=== PATIENT | male | born 1955 | race Caucasian/White ===

== ENCOUNTER 2021-04-17 08:15 | Inpatient (IN) | payer OTHER, SELFPAY ==
[2021-04-17] VITALS (31 sets, daily range): BP systolic 117–171; BP diastolic 66–93; PULSE 68–88; RESP 16–24; TEMP 36.4–37.1; O2SAT 93–99; BMI 33.5
--- NOTE | 2021-04-17 08:24 | PC.NURSE ---
To seed laboratory assistant via stretcher with seed laboratory assistant team.
--- NOTE | 2021-04-17 08:30 | ED.CHESTPAIN ---
HPI - Chest Pain General Chief Complaint: Chest Pain Stated Complaint: STEMI Time Seen by Provider: 04/17/21 08:17 Source: patient Mode of arrival: EMS Limitations: no limitations History of Present Illness HPI narrative: Patient is a six 5-year-old male complaining of chest pain, midsternal, crushing, 10 out of 10, radiating to left arm, coming by diaphoresis, started this morning. STEMI alert called by EMS prior to arrival. Cardiology notified and present here in the emergency room. Patient taken to Wet Mixer as soon as patient arrived. Related Data Allergies Allergy/AdvReac Type Severity Reaction Status Date / Time No Known Allergies Allergy Mild Verified 04/17/21 08:33 Review of Systems Review of Systems: All systems reviewed & are unremarkable except as noted in HPI and below Constitutional: Constitutional: Denies body ache(s), Denies chills, Denies excessive sweating, Denies fatigue, Denies fever(s), Denies headache(s), Denies lethargy, Denies malaise, Denies weakness and Denies weight loss Eyes: Eyes: Denies blurry vision, Denies change in vision and Denies loss of vision ENT: Denies dizziness, Denies ear discharge, Denies headache(s), Denies lip swelling, Denies epistaxis, Denies nasal congestion, Denies neck pain, Denies throat swelling and Denies tongue swelling Cardiovascular: Cardiovascular: Denies rapid heart rate, Denies edema, Denies irregular heart rhythm, Denies lightheadedness, Denies palpitations, Denies dyspnea and Denies dyspnea on exertion Respiratory: Respiratory: Denies chest congestion, Denies cough, Denies hemoptysis, Denies dyspnea and Denies dyspnea on exertion Gastrointestinal: Gastrointestinal: Denies abdominal pain, Denies melena, Denies hematochezia, Denies diarrhea, Denies nausea, Denies vomiting and Denies hematemesis Musculoskeletal: Musculoskeletal: Denies abnormal gait, Denies deformity, Denies joint swelling, Denies limited range of motion, Denies neck pain and Denies numbness Neurologic: Denies Abnormal speech present, Denies abnormal gait, Denies confusion, Denies dizziness, Denies headache(s), Denies focal weakness, Denies loss of vision, Denies numbness, Denies Other visual disturbances, Denies Sensory deficit (Neuro) and Denies weakness Psychiatric: Psychiatric: Denies confusion, Denies depression, Denies auditory hallucinations, Denies homicidal ideation and Denies suicidal ideation Endocrine: Endocrine: Denies cold intolerance, Denies excessive sweating, Denies fatigue, Denies heat intolerance and Denies palpitations Hematologic/Lymphatic: Hematologic/Lymphatic: Denies easy bleeding and Denies easy bruising Allergic/Immunologic: Allergic/Immunologic: Denies lip swelling, Denies throat swelling and Denies tongue swelling PMFSH Comments Past medical history: Unknown Family history: Unknown Social history: Unknown Exam Const: General: cooperative, healthy appearing, comfortable, no acute distress, well developed, alert and awake; No confusion Orientation/consciousness: oriented to person, oriented to place, oriented to time, patient oriented x3 and No confusion Limitations: no limitations HENMT: Head: normal to inspection, normocephalic and atraumatic Ears: hearing grossly normal bilaterally, TM normal on the right and TM normal on the left General nose exam: Normal external nose present, Normal nares present and No nasal discharge present Face and sinus: normal facial exam Mouth: Yes Normal oral and palatal mucosa present, Yes lip normal, Yes tongue normal and Yes oropharynx normal Throat: posterior oropharynx normal, tonsils normal and uvula midline Eyes: General: appearance normal, both eyes and all related structures Pupils: Equal, round and reactive pupils present EOM: EOMs intact bilaterally Neck: Neck: normal visual inspection, full ROM, no lymphadenopathy and no meningeal signs Chest: Chest palpation & inspection: normal inspection of the chest Resp: Effort & Inspectio
[2021-04-17] MEDS: TICAGRELOR 90 MG TABLET 180 MG (08:31)
[2021-04-17 08:43] LABS: INR 1.2; Prothrombin Time 14.7 Seconds (11.1-14.7)
[2021-04-17 08:44] LABS: Partial Thromboplastin Time 24.8 SECONDS (22.3-36.8)
[2021-04-17 08:46] LABS: Alanine Aminotransferase 19 U/L (4-50); Albumin Level 4.3 g/dL (3.5-5.1); Alkaline Phosphatase 86 U/L (38-126); Anion Gap 8 mmol/L (8-16); Aspartate Amino Transferase 26 U/L (17-59); Bilirubin,Total 0.7 mg/dL (0.2-1.3); Blood Urea Nitrogen 16 mg/dL (9-20); Calcium 9.3 mg/dL (8.4-10.2); Carbon Dioxide 19 mmol/L (22-30); Chloride 102 mmol/L (98-107); Estimated CRCL calculation 100 ml/min; Estimated Glomerular Filt Rate > 60; Glucose 243 mg/dL (65-110); Potassium 3.8 mmol/L (3.4-5.0); Sodium 129 mmol/L (137-145)
[2021-04-17 08:51] LABS: Basophils Absolute Auto 0.1 K/mm3 (0.0-0.1); Basophils Percent Auto 0.5 % (0.2-1.2); Eosinophils Absolute Auto 0.1 K/mm3 (0-0.3); Eosinophils Percent Auto 0.9 % (0-4.4); Hematocrit 43.3 % (42.0-52.0); Hemoglobin 14.6 g/dL (14.0-18.0); Immature Granulocyte Absolute 0.07 K/mm3 (0.00-0.031); Immature Granulocyte Percent A 0.7 % (0-0.5); Lymphocytes Absolute Auto 2.91 K/mm3 (0.9-3.2); Lymphocytes Percent Auto 30.7 % (18.3-44.2); Mean Corpuscular HGB Conc 33.7 g/dl (32-36); Mean Corpuscular Hemoglobin 30.1 pg (26-34); Mean Corpuscular Volume 89.3 fl (80-100); Mean Platelet Volume 9.7 fl (7.4-10.4); Monocytes Absolute Auto 0.9 K/mm3 (0.1-0.6); Monocytes Percent Auto 9.3 % (2.6-8.5); Neutrophils Absolute Auto 5.5 K/mm3 (1.3-6.7); Neutrophils Percent Auto 57.9 % (45.5-73.1); Platelet Count Result 362 k/mm3 (150-375); Red Blood Count 4.85 M/mm3 (4.6-6.20); Red Cell Distribution Width 12.1 % (11.5-14.5); White Blood Count 9.5 K/mm3 (4.5-10.0)
[2021-04-17 09:01] LABS: NT Pro B Type Natriuretic Pept 51 pg/mL (5-100); Troponin I 0.053 ng/mL (0.000-0.034)
--- NOTE | 2021-04-17 09:18 | ECG_ITS ---
Measurements Intervals [place] Rate: 69 P: 39 WA: 161 QRS: -19 QRSD: 102 T: 2 QT: 362 QTc: 389 Interpretive Statements SINUS RHYTHM ANTERIOR INFARCT, AGE INDETERMINATE BORDERLINE T WAVE ABNORMALITY- INFERIOR LEADS ATYPICAL ECG Electronically Signed On 04-18-2021 9:52:21 TECHNICAL ACCOUNT EXECUTIVE by Toriot Farnsworth D.O.
--- NOTE | 2021-04-17 09:22 | PM.IMHP ---
H&P: HPI History of Present Illness Date/Time: 04/17/21 09:22 Chief Complaint: chest pain Narrative: this is a 65-year-old man without prior history of cardiac pathology was presents to the emergency by ambulance this morning with acute onset of chest pain that began this morning while he was at home having coffee. ECG appears to show hyperacute T-wave abnormalities across the precordial leads in this setting preparations are being made for emergency catheterization with revascularization. 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 He receives his medical care from a primary care physician in [place]. He has had no previous medical records here at [facility]. He reports that he is being treated for hypertension and non insulin-dependent diabetes. He reports no medical allergies and does not smoke. Review of Systems Review of Systems: ROS unobtainable: Yes unobtainable due to medical condition Meds Home Medications and Allergies Allergies Allergy/AdvReac Type Severity Reaction Status Date / Time No Known Allergies Allergy Mild Verified 04/17/21 08:33 Vital Signs Vital Signs - 24 hr 04/17/21 08:14 04/17/21 08:32 Temperature 36.4 C Pulse Rate 85 84 Respiratory Rate 24 H Blood Pressure 171/72 H Pulse Oximetry 97 Exam Const: General: in distress and uncomfortable Other: Well-developed well-nourished overweight white male appearing his stated age in severe chest pain distress HENMT: Mouth: Yes moist mucous membranes Eyes: Sclera: sclerae normal Pupils: Equal, round and reactive pupils present Neck: Neck: supple and no JVD Other: carotid pulses are intact and without any bruits Resp: Effort & Inspection: normal respiratory effort Auscultation: clear to auscultation bilaterally Cardio: Rate: regular rate Rhythm: regular rhythm Other: PMI is difficult to palpate S1-S2 are normal no murmur S4 is evident GI: GI Palp: Yes Soft to palpation Auscultation: normal bowel sounds Skin: General skin exam: normal color Neuro: Cognition (Neuro): normal cognition Extrem: General: normal to inspection H&P: Results Labs Labs: Short CBC 04/17/21 Range/Units 08:21 WBC 9.5 (4.5-10.0) K/mm3 Hgb 14.6 (14.0-18.0) g/dL Hct 43.3 (42.0-52.0) % Plt Count 362 (150-375) k/mm3 BMP 04/17/21 08:21 Sodium 129 L Potassium 3.8 Chloride 102 Carbon Dioxide 19 L BUN 16 Creatinine 0.80 Glucose 243 H Calcium 9.3 Cardiac Enzymes 04/17/21 Range/Units 08:21 Troponin I 0.053 H* (0.000-0.034) ng/mL Liver Function 04/17/21 Range/Units 08:21 Total Bilirubin 0.7 (0.2-1.3) mg/dL AST 26 (17-59) U/L ALT 19 (4-50) U/L Alkaline Phosphatase 86 (38-126) U/L Albumin 4.3 (3.5-5.1) g/dL Assessment and Plan Additional Plan this is a 65-year-old man with prior history of hypertension and diabetes presented with chest pain ECG compatible with acute anterior wall injury. Preparations are now being made for emergency angiography in hopes of providing revascularization. Britton Lazar MD [facility]
--- NOTE | 2021-04-17 09:25 | WPDCARDPROC ---
Cardiac Cath Procedure Note Date of procedure:: 04/17/21 Performing physician:: Britton Lazar MD Indication:: chest pain, acute anterior wall AK Brief clinical history:: this is a 65-year-old man without prior history of cardiac problems who presents with acute chest pain by ambulance. ECG is compatible with acute anterior wall current of injury. Procedure Procedure performed:: Emergency coronary angiography emergency PCI(JENNIFER) to the mid LAD left ventriculography Sedation/Medication given:: fentanyl 75 mg Versed 2 mg case start time 835 a.m. case end time 9:10 a.m. sedation provided by Olimpia Gordon RN, trained observer Access site:: right femoral artery Estimated blood loss:: 20 cc Procedure note:: patient was brought to the cardiac catheterization lab in the emergency setting described above. The right femoral triangle was prepared draped usual fashion. Anesthesia was provided with 1% lidocaine infiltrated locally. Using the modified Seldinger technique right punctured and a 6 [place]an vascular sheath was placed. After this I used a 5 [place] JR4 guiding catheter to engage and inject the right coronary artery. After this the left coronary artery was engaged and injected using 6 [place] CLS 3.5 guiding catheter. After this emergency PCI of the mid LAD was recommended and carried out as detailed below. Prior to PCI the patient received Brilinta 180 mg p.o.. He had received aspirin in the emergency department. He was systemically anticoagulated with bolus and infusion of Angiomax. Following emergency PCI the guiding system was removed and the guidewires. A 5 [place] angled pigtail catheter was used to measure left-sided hemodynamics and to inject LV g in the are AO projection. After this the case was terminated the sheath was sutured into position patient was taken to the holding area for post mi/PCI recovery. Findings:: Hemodynamics: Central aortic pressure is 44 over 66 left ventricle 144/0 end-diastolic 16 significant gradient on pullback across the aortic valve. Left ventricle: The LV is normal in size. The mid to apical anterior wall and apex are akinetic. The remainder of the LV contracts normally. Global LV ejection fraction is 45-50% by visual estimation the left main coronary artery is short but nicely patent the left anterior descending is a medium caliber artery giving rise to a septal perforating branch and then a diagonal branch of moderate size after this diagonal branch there is a short distance where the LAD is 100% occluded. The angiographic appearance is typical of an abrupt thrombotic occlusion. The circumflex is a moderate caliber artery giving rise to the marginal branch. The large marginal branch has mild stenosis of about 50-60%. The right coronary artery is medium in caliber and dominant to the posterior circulation the right coronary artery has diffuse mild luminal irregularities but no angiographically significant lesions. Intervention: The LAD was wired using a 0.014 airplane pilot chief 150 coronary guidewire. Following this the lesion was pre-dilated using a 3 x 20 mm emerge PTCA balloon. This restored RACHNA 3 flow into the LAD. The target lesion was a short distance after the major diagonal branch took its origin. This lesion was then treated further with a 3 x 18 mm Orsiro drug-eluting stent deployed at 10 atmospheres with an excellent anatomical result following this the LAD was widely patent with no residual stenosis the target lesion excellent RACHNA 3 flow to the apex no disruption dissection or distal embolization. The LAD distal to this is medium in caliber and has mild diffuse luminal irregularities. Conclusion:: 1. Coronary artery disease in this gentleman presenting with acute anterior wall myocardial infarction with 100% acute occlusion of the mid LAD which was treated successfully using the Orsiro drug-eluting stent described above with very good anatomic result resulting in r
[2021-04-17] MEDS: SODIUM CHLORIDE 0.9% IV 1,000 ML 125 ML IV CONT (11:30)
--- NOTE | 2021-04-17 13:14 | SUR.PHASEII ---
END PHASE II RECOVERY. SEE PCS FOR FURTHER DOCUMENTATION. PT. ADMITTED TO TELEVISION ENGINEERING TEACHER 4 IMU OVERFLOW STATUS POST STEMI, C W/ PCI TO LAD W/ DR. SEYMOUR. HEMOSTASIS AFTER SHEATH PULL FROM R. GROIN AT 1214. BEDREST X 6 HOURS. IVF'S RUNNING ORDERED. DENIES CP OR SOB. WILL CONTINUE TO MONITOR.
--- NOTE | 2021-04-17 13:15 | ADMGEN ---
This patient, Earl Rizo, was admitted IMU OVERFLOW IN [facility]. SEE PHASE II IN MJ TRACKER FOR PREVIOUS DOCUMENTATION. S/P LHC W/ PCI POST STEMI W/ DR. SEYMOUR. HEMOSTASIS ACHIEVED TO R. GROIN PUNCTURE SITE AFTER 30 MINUTE PRESSURE HOLD AT 1214 BY LIANG Sterling RRT. BEDREST CONTINUES X 6 HOURS. IVF'S RUNNING AT 125ML/HR ORDERED. DENIES PAIN OR SOB AT THIS TIME. Patient/family oriented to hospital policies and general routines including ID bracelet, bed and alarms, visiting hours, pain management, procedures, bathroom and other care routines, personal items, smoking policy, room service/diet, and visiting hours. Information on how to activate the Rapid Response Team has been discussed. Patient/Family are encouraged to report perceived risks to care and to ask questions if they do not understand what they are told or what they should do. WILL CONTINUE TO MONITOR.
[2021-04-17 14:22] LABS: Cholesterol 152 mg/dL (0-200); HDL Direct 32 mg/dL; Triglycerides 167 mg/dL (<150)
[2021-04-17 14:33] LABS: LDL Cholesterol Direct 92 mg/dL
--- NOTE | 2021-04-17 14:56 | PC.NURSE ---
Patient report recieved from CARLA Molina. All questions answered and care of patient assumed.
[2021-04-17] MEDS: ALPRAZolam (*CRX) 0.25 MG TABLET PO (16:17)
[2021-04-17 17:45] LABS: Troponin I > 80.000 ng/mL (0.000-0.034)
[2021-04-17] MEDS: TICAGRELOR 90 MG TABLET PO (21:56)
[2021-04-17] MEDS: METOPROLOL TARTRATE 25 MG TABLET PO (21:56)
[2021-04-18] VITALS (17 sets, daily range): BP systolic 119–136; BP diastolic 59–83; PULSE 58–71; RESP 13–21; TEMP 36.4–37; O2SAT 96–100
--- NOTE | 2021-04-18 | ECHO_ITS ---
Patient Info Name: Earl Rizo Age: 65 years : 1955 Gender: Male Ht: 70 in Wt: 233 lbs BSA: 2.32 m2 HR: 66 bpm BP: 132 / 77 mmHg Heart Rhythm: Sinus Rhythm Technical Quality: Good Exam Date: 04/18/2021 1:24 PM Exam Location: [facility] Patient Status: Inpatient Admit Date: 04/17/2021 Staff Ordering Physician: Jesus Ballard MD International Account Manager: Melany Johnson RDCS Attending Provider: Britton Lazar MD Referring Physician: Elio LANGLEY; Exam Type: CA echo dop color flow w con Study Info Indications I22.0 - Subsequent ST elevation (STEMI) myocardial infarction of anterior wall - CAD STATUS POST ANTERIOR STEMI Complete two-dimensional, color flow and Doppler transthoracic echocardiogram is performed with contrast to opacify the left ventricle and to improve the deliniation of the left ventricle endocardial borders. Strain analysis performed. Contrast/Agitated Saline Contrast/Ag. Saline: Definity Amount: 2.00 ml Existing IV Access: Yes IV Access Condition: patent with no signs of infiltration Summary 1. There is probably a small sessile thrombus visualized in the left ventricle apex. 2. Left ventricular chamber dimension is normal. 3. Left ventricular systolic function is normal, estimated at 65-70%. 4. There is mildly increased left ventricular wall thickness. 5. The left ventricular diastolic function is grade I diastolic dysfunction. 6. Global longitudinal strain is abnormal at -15 %. 7. The apical septum, and apical cap are hypokinetic. 8. Complete two-dimensional, color flow and Doppler transthoracic echocardiogram is performed with contrast to opacify the left ventricle and to improve the deliniation of the left ventricle endocardial borders. 9. Strain analysis performed. 10. There is mild aortic valve stenosis with a peak velocity of 270.71 cm/s, mean gradient of 15 mmHg, and aortic valve area of 1.75 cm2. 11. There is mild aortic valve regurgitation. 12. There is mild aortic valve calcification. 13. There is mild tricuspid valve regurgitation. Left Ventricle There is probably a small sessile thrombus visualized in the left ventricle apex. Left ventricular chamber dimension is normal. Left ventricular systolic function is normal, estimated at 65-70%. There is mildly increased left ventricular wall thickness. The left ventricular diastolic function is grade I diastolic dysfunction. Global longitudinal strain is abnormal at -15 %. The apical septum, and apical cap are hypokinetic. All other ambrose appear normal. Right Ventricle Right ventricular chamber dimension is normal. Right ventricular systolic function is normal. Left Atria Left atrial chamber dimension is normal. Right Atria Right atrial chamber dimension is normal. Atrial Septum Intact interatrial septum visualized by color flow imaging. Aortic Valve The aortic valve is trileaflet. There is mild aortic valve stenosis with a peak velocity of 270.71 cm/s, mean gradient of 15 mmHg, and aortic valve area of 1.75 cm2. There is mild aortic valve regurgitation. There is mild aortic valve calcification. Pulmonic Valve The pulmonic valve is normal. There is no pulmonic valve stenosis. There is trace pulmonic regurgitation. Mitral Valve The mitral valve has normal leaflets. There is no mitral valve stenosis. There is trace mitral valve regurgitation. Tricuspid Valve The tricuspid valve leaflets are pippa
--- NOTE | 2021-04-18 04:48 | PC.NURSE ---
SPOKE W/ DR. CHIANG. AWARE OF CONSULT FOR MEDICAL MANAGEMENT.
--- NOTE | 2021-04-18 05:11 | ECG_ITS ---
Measurements Intervals [place] Rate: 62 P: 28 PA: 160 QRS: -30 QRSD: 92 T: 1 QT: 361 QTc: 369 Interpretive Statements SINUS RHYTHM INCOMPLETE RIGHT BUNDLE BRANCH BLOCK ANTERIOR INFARCT, PROBABLY RECENT ABNORMAL ECG Electronically Signed On 04-18-2021 7:50:17 SALES LEDGER ADMINISTRATOR by Torito Farnsworth D.O.
--- NOTE | 2021-04-18 09:06 | PM.IMCN ---
Assessment and Plan Assessment and plan (1) ST elevation (STEMI) myocardial infarction: Qualifiers: Involved coronary artery: unspecified coronary artery Qualified Code(s): I21.3 - ST elevation (STEMI) myocardial infarction of unspecified site Code(s): I21.3 - ST elevation (STEMI) myocardial infarction of unspecified site Status: Acute Assessment and Plan: Cardiology, evaluation noted will continue current treatment. (2) Non-insulin dependent diabetes mellitus: Status: Acute Assessment and Plan: Will restart home medication. Accu-Check twice a day. Diet instruction given. (3) Essential hypertension: Code(s): I10 - Essential (primary) hypertension Status: Acute Assessment and Plan: Home medications restarted. Monitor blood pressure closely. Additional Plan Patient is currently stable. Will continue with diabetic and blood pressure medication. Discharge plan as per Cardiology HPI Data of Consult Consult date: 04/18/21 Requesting Physician: Britton Lazar MD Primary Care Provider: PHYSICIAN NOT ON STAFF Consult Narrative Reason for consult: Management of hypertension and diabetes Narrative: Earl Rizo is a 65 year old male was admitted and [facility] for chest pain. Patient was taken to general production laborer immediately upon arrival to ER. Catheterization showed patient has mid LAD 100% occlusion. Patient at successful placement of Orsiro drug eluting stent placement. Patient has history of hypertension and diabetes and was taking lisinopril and metformin at home. Today patient is feeling doing better, no chest pain or shortness of breath. No abdominal pain nausea or vomiting. Mood stable. Review of Systems Review of Systems: All systems reviewed & are unremarkable except as noted in HPI and below (the history and physical examination.) [facility] Social History Social History Smoking packs per day: 0 Smoking cigarettes per day: 0.0 Smoking status: Never smoker Second hand tobacco smoke exposure: No Alcohol intake: never Drinks per week: 0 Substance use: never Substance use type: does not use Living arrangements: with family Spiritual care concerns: No Meds Home Medications and Allergies Home Medications Medication Instructions Recorded Confirmed Type lisinopril 10 mg PO DAILY 04/17/21 04/17/21 History metformin 1,000 mg PO DAILY 04/17/21 04/17/21 History pravastatin 20 mg PO HS 04/17/21 04/17/21 History sildenafil 25 mg PO DAILY PRN 04/17/21 04/17/21 History Allergies Allergy/AdvReac Type Severity Reaction Status Date / Time No Known Allergies Allergy Mild Verified 04/17/21 08:33 Vital Signs Vital Signs - 24 hr 04/17/21 09:30 04/17/21 09:45 04/17/21 10:00 Temperature 37.1 C Pulse Rate 84 78 68 Respiratory Rate 24 H 20 17 Blood Pressure 127/71 126/66 133/69 Pulse Oximetry 97 93 97 04/17/21 10:15 04/17/21 10:30 04/17/21 11:00 Temperature Pulse Rate 73 78 79 Respiratory Rate 18 17 16 Blood Pressure 124/77 124/73 124/75 Pulse Oximetry 97 98 96 04/17/21 11:30 04/17/21 11:45 04/17/21 12:00 Temperature Pulse Rate 77 80 81 Respiratory Rate 18 20 18 Blood Pressure 118/78 131/73 133/69 Pulse Oximetry 96 97 98 04/17/21 12:15 04/17/21 12:30 04/17/21 12:45 Temperature Pulse Rate 80 88 83 Respiratory Rate 16 16 18 Blood Pressure 124/78 146/79 H 137/73 Pulse Oximetry 97 99 96 04/17/21 13:00 04/17/21 13:15 04/17/21 13:45 Temperature Pulse Rate 88 74 73 Respiratory Rate 18 16 16 Blood Pressure 135/74 139/84 133/75 Pulse Oximetry 96 97 97 04/17/21 14:00 04/17/21 14:15 04/17/21 15:15 Temperature Pulse Rate 74 73 76 Respiratory Rate 16 18 Blood Pressure 143/77 H 138/73 Pulse Oximetry 96 96 04/17/21 15:45 04/17/21 16:00 04/17/21 16:45 Temperature 37.1 C Pulse Rate 80 82 75 Respiratory Rate 18 20 18
[2021-04-18] MEDS: TICAGRELOR 90 MG TABLET PO ×2 (09:16→20:53)
[2021-04-18] MEDS: ASPIRIN 81 MG CHEWABLE TABLET PO (09:17)
[2021-04-18] MEDS: lisinopriL 5 MG TABLET PO (09:17)
[2021-04-18] MEDS: METOPROLOL TARTRATE 25 MG TABLET PO ×2 (09:17→20:53)
[2021-04-18] MEDS: ROSUVASTATIN 10 MG TABLET 20 MG PO (09:17)
[2021-04-18 12:08] LABS: Glucose Point of Care 116 mg/dl (65-105)
--- NOTE | 2021-04-18 13:00 | PM.PNCARD ---
Progress Note: A&P Assessment and Plan (1) ST elevation (STEMI) myocardial infarction: Qualifiers: Involved coronary artery: unspecified coronary artery Qualified Code(s): I21.3 - ST elevation (STEMI) myocardial infarction of unspecified site Code(s): I21.3 - ST elevation (STEMI) myocardial infarction of unspecified site Status: Acute Assessment and Plan: Status post LAD stenting yesterday. Feels fine. No chest pain or shortness breath. Continue aspirin, Brilinta, statin, metoprolol, lisinopril. Will increase his lisinopril dose up to 20 mg daily. Home tomorrow. 2D echocardiogram Doppler will be ordered (2) Non-insulin dependent diabetes mellitus: Status: Acute Assessment and Plan: Per hospitalist (3) Essential hypertension: Code(s): I10 - Essential (primary) hypertension Status: Acute Assessment and Plan: Will increase lisinopril to 20 mg daily (4) Hyperlipidemia LDL goal <70: Code(s): E78.5 - Hyperlipidemia, unspecified Status: Acute Assessment and Plan: Continue rosuvastatin but will discontinue the pravastatin. Subjective Date/time seen: 04/18/21 13:00 Interval history: 65-year-old admitted because of chest pain and ST-elevation myocardial infarction Date of service 04/18/2021: Feels good. No chest pain, shortness of breath. No groin problems Review of Systems Review of Systems: All systems reviewed & are unremarkable except as noted in HPI and below Constitutional: Constitutional: Denies weakness Eyes: Eyes: Denies blurry vision ENT: Denies Normal hearing present Cardiovascular: Cardiovascular: Denies chest pain Respiratory: Respiratory: Denies dyspnea Gastrointestinal: Gastrointestinal: Denies abdominal pain Genitourinary: Genitourinary: Denies dysuria Musculoskeletal: Musculoskeletal: Denies neck pain Integumentary/Breasts: Skin/Breast: Denies dry skin Neurologic: Denies headache(s) Psychiatric: Psychiatric: Denies confusion Endocrine: Endocrine: Denies excessive sweating Hematologic/Lymphatic: Hematologic/Lymphatic: Denies easy bruising Allergic/Immunologic: Allergic/Immunologic: Denies GI upset with certain foods Exam Const: General: No in distress Other: Well-developed well-nourished overweight white male appearing his stated age HENMT: Mouth: Yes moist mucous membranes Eyes: Sclera: sclerae normal Neck: Neck: supple and no JVD Other: carotid pulses are intact and without any bruits Resp: Effort & Inspection: normal respiratory effort Auscultation: clear to auscultation bilaterally Cardio: Rate: regular rate Rhythm: regular rhythm Other: PMI is difficult to palpate S1-S2 are normal no murmur S4 is evident GI: Auscultation: normal bowel sounds Skin: General skin exam: normal color Neuro: Cranial nerves: Yes Equal, round and reactive pupils present Cognition (Neuro): normal cognition Extrem: General: normal to inspection Objective Data Vital Signs Vital Signs: Vital Signs - 24 hr 04/17/21 13:15 04/17/21 13:45 04/17/21 14:00 Temperature Pulse Rate 74 73 74 Pulse Rate [Right Pedal (Dorsalis Pedis) Palpation] Respiratory Rate 16 16 Blood Pressure 139/84 133/75 Pulse Oximetry 97 97 04/17/21 14:15 04/17/21 15:15 04/17/21 15:45 Temperature Pulse Rate 73 76 80 Pulse Rate [Right Pedal (Dorsalis Pedis) Palpation] Respiratory Rate 16 18 18 Blood Pressure 143/77 H 138/73 117/75 Pulse Oximetry 96 96 95 04/17/21 16:00 04/17/21 16:45 04/17/21 17:00 Temperature 37.1 C Pulse Rate 82 75 76 Pulse Rate [Right Pedal (Dorsalis Pedis) Palpation] Respiratory Rate 20 18 24 H Blood Pressure 150/72 H 138/93 H 135/74 Pulse Oximetry 95 97 96 04/17/21 17:30 04/17/21 17:58 04/17/21 19:00 Temperature Pulse Rate 74 78 85 Pulse Rate [Right Pedal (Dorsalis Pedis) Palpation] Respiratory Rate 24 H 20 Blood Pressure 140/68 148/77 H Pulse Oxime
[2021-04-18] MEDS: PERFLUTREN LIPID MICROSPHERES 1.5 ML VIAL DILUTED TO 10 ML TOTAL VOLUME IV PUSH (13:58)
[2021-04-18] MEDS: RIVAROXABAN 20 MG TABLET PO (14:58)
--- NOTE | 2021-04-18 15:08 | PC.NURSE ---
Patient report received from CARLA Ramos. All questions answered and care of patient assumed. Patient resting comfortably in bed with no complaints. VSS. NSR on the monitor with a rate in the 70s. Will continue to monitor.
--- NOTE | 2021-04-18 17:03 | PC.NURSE ---
Patient report called to RN on [facility]. Patient transported on portable compliance monitor via .
--- NOTE | 2021-04-18 17:13 | PC.NURSE ---
This patient, Earl Rizo, was received from [facility] on 04/18/21 at 1713. Patient/family oriented to unit policies and routines
[2021-04-18] MEDS: metFORMIN HCL 500 MG TABLET 1000 MG PO (17:36)
[2021-04-18 19:04] LABS: Anion Gap 10 mmol/L (8-16); Blood Urea Nitrogen 14 mg/dL (9-20); Calcium 9.6 mg/dL (8.4-10.2); Carbon Dioxide 27 mmol/L (22-30); Chloride 100 mmol/L (98-107); Cholesterol 159 mg/dL (0-200); Estimated CRCL calculation 100 ml/min; Estimated Glomerular Filt Rate > 60; Glucose 151 mg/dL (65-110); HDL Direct 34 mg/dL; Potassium 3.9 mmol/L (3.4-5.0); Sodium 137 mmol/L (137-145); Triglycerides 170 mg/dL (<150)
[2021-04-18 19:14] LABS: LDL Cholesterol Direct 95 mg/dL
[2021-04-18 22:07] LABS: Glucose Point of Care 115 mg/dl (65-105)
[2021-04-19] VITALS (9 sets, daily range): BP systolic 123–130; BP diastolic 58–68; PULSE 58–80; RESP 18–20; TEMP 36.2–36.6; O2SAT 99–100
[2021-04-19 03:22] LABS: Hemoglobin A1C 6.8 % (<5.7)
[2021-04-19 08:09] LABS: Glucose Point of Care 122 mg/dl (65-105)
[2021-04-19] MEDS: metFORMIN HCL 500 MG TABLET 1000 MG PO (08:23)
[2021-04-19] MEDS: ASPIRIN 81 MG CHEWABLE TABLET PO (08:23)
[2021-04-19] MEDS: lisinopriL 20 MG TABLET PO (08:24)
[2021-04-19] MEDS: TICAGRELOR 90 MG TABLET PO (08:24)
[2021-04-19] MEDS: METOPROLOL TARTRATE 25 MG TABLET PO (08:24)
--- NOTE | 2021-04-19 10:37 | PM.DS ---
DS: Admitting Diagnosis Discharge Date 04/19/2021 Admitting Diagnosis acute anterior wall KS DS: Discharge Diagnosis Discharge Diagnosis (1) ST elevation (STEMI) myocardial infarction: Qualifiers: Involved coronary artery: unspecified coronary artery Qualified Code(s): I21.3 - ST elevation (STEMI) myocardial infarction of unspecified site Code(s): I21.3 - ST elevation (STEMI) myocardial infarction of unspecified site Status: Acute DS: Summary Hospital Course Reason for hospitalization: acute KS Hospital Course: this is a 65-year-old man with a previous history of hypertension and smoking presented to the hospital with chest pain and ECG evidence of acute anterior wall myocardial infarction. He was brought immediately to the cardiac electronic lab technician for emergency angiography and was found to have occlusion of the mid LAD after the major diagonal branch took its origin. Emergency PCI of this was then carried out successfully with PTCA and deployment of a Orsiro drug-eluting stent with very good anatomical result and moravian of RACHNA 3 flow in the vessel down to the apex. He had no post KS/ PCI complications. The patient was kept in the hospital for a couple of days. An echocardiogram was ordered which demonstrated hypokinesis of the anteroapical segment and a questionable apical thrombus. For this reason Xarelto was added to his medical regimen yesterday. Today he is ambulatory has no cardiovascular complaints and appears to be a good candidate for discharge. Discharge medications are as detailed below. My intention is to provide Xarelto for 1 month as LV ejection fraction is nicely preserved it is not my expectation he will require anticoagulation other than the short term. An appointment is made for follow-up in our office here. He has a PCP in the [facility] in [place]. I would disrupted the patient to notify a physician of this affect event and arrange for appropriate follow-up in that office as well. He will not be returning to work until he is seen in the office for follow-up. Time spent discussing smoking cessation with patient: 3 to 10 minutes Status at Discharge Functional status at discharge: independent ambulation Overall status at discharge: patient is progressing back to baseline Time Spent with Patient Time attestation: Total time spent providing and/or coordinating discharge services: Time spent: Less than 30 minutes Exam Const: General: comfortable and no acute distress HENMT: Mouth: Yes moist mucous membranes Eyes: Sclera: sclerae normal Pupils: Equal, round and reactive pupils present Neck: Neck: supple and no JVD Other: Carotid pulses are normal with no bruits Resp: Effort & Inspection: normal respiratory effort Auscultation: clear to auscultation bilaterally Cardio: Rate: regular rate Rhythm: regular rhythm Other: no murmur no gallop rub GI: GI Palp: Yes Soft to palpation Auscultation: normal bowel sounds Skin: General skin exam: normal color Neuro: Other: normal cognition Extrem: General: normal to inspection Other: no hematoma normal distal pulses DS: Data Data Completed and Pending Labs on day of discharge: Labs from last 24 hours 04/19/21 04/18/21 04/18/21 07:41 20:56 18:37 Sodium Potassium Chloride Carbon Dioxide Anion Gap BUN Creatinine Estim Creat Clear Calc Estimated GFR Glucose POC Capillary Glucose 122 H 115 H Hemoglobin A1c Calcium Triglycerides 170 H Cholesterol 159 LDL Cholesterol Direct 95 HDL Direct 34 04/18/21 04/18/21 04/18/21 18:37 12:04 08:21 Sodium 137 Potassium 3.9 Chloride 100 Carbon Dioxide 27 Anion Gap 10 BUN 14 Creatinine 0.80 Estim Creat Clear Calc 100 Estimated GFR > 60 Glucose 151 H POC Capillary Glucose 116 H Hemoglobin A1c 6.8 H Calcium 9.6 Triglycerides Cholesterol LDL Cholesterol Direct
== END 2021-04-19 11:58 | disposition home or self-care (01) | DRG 247 ==
LOC: ANHED 08:24 → ANHCATHLAB 08:37 → ANHED 09:46 → ANHCPC 09:48 → ANH2MED 04-18 17:16
PROVIDERS: Internal Medicine; Admitting Provider Specialist; Emergency Provider Emergency Medicine; Visit Provider Specialist
PROC: 4A023N7 Measurement of Cardiac Sampling and Pressure, Left Heart, Percutaneous Approach (ICD-10-PCS; CPT 93452; principal; 2021-04-17 08:30)
PROC: 027034Z Dilation of Coronary Artery, One Artery with Drug-eluting Intraluminal Device, Percutaneous Approach (ICD-10-PCS; 2021-04-17 08:30)
DX: I21.09 ST elevation (STEMI) myocardial infarction involving other coronary artery of anterior wall (principal); I25.10 Atherosclerotic heart disease of native coronary artery without angina pectoris; E11.9 Type 2 diabetes mellitus without complications; I10 Essential (primary) hypertension; E78.5 Hyperlipidemia, unspecified; Z79.899 Other long term (current) drug therapy
CPT/HCPCS: 36415; 80048; 80053; 80061; 82948; 83036; 83880; 84484; 85025; 85610; 85730; 93005; 93458; 99285; A9270; C1725; C1769; C1874; C1887; C8929; C9606; J0583; J1644; J2250; J3010; J7030; J7040; Q9957

== ENCOUNTER 2021-05-09 23:58 | Observation (INO) | payer OTHER, SELFPAY ==
--- NOTE | ~2021-05-09 | XR_ITS ---
XR chest 2V DATE: 05/10/2021 00:35 INDICATION: Dizziness. Chest and head pounding. Recent STEMI/stent. TECHNIQUE: AP and lateral views COMPARISON: None FINDINGS: Heart size is within normal limits. No pulmonary infiltrate or consolidation, pleural effus ion or pulmonary vascular congestion or pneumothorax. IMPRESSION: No active cardiopulmonary disease Reviewed, dictated and finalized at location [facility]
[2021-05-10] VITALS (25 sets, daily range): BP systolic 119–152; BP diastolic 56–77; PULSE 55–84; RESP 0–26; TEMP 36.3–36.6; O2SAT 98–100; BMI 31.4
--- NOTE | 2021-05-10 00:04 | ECG_ITS ---
Measurements Intervals [place] Rate: 72 P: 34 MD: 161 QRS: -38 QRSD: 93 T: 23 QT: 355 QTc: 389 Interpretive Statements SINUS RHYTHM LEFT AXIS DEVIATION ANTEROSEPTAL INFARCT, PROBABLY RECENT T WAVE ABNORMALITY IN ANTERIOR LEADS- CONSIDER ISCHEMIA BASELINE ARTIFACT- I, II, III, AVR, AVF, V3-V6 ABNORMAL ECG Electronically Signed On 05-10-2021 6:43:51 [facility] by Torito Farnsworth D.O.
[2021-05-10 00:41] LABS: Anion Gap 11 mmol/L (8-16); Basophils Absolute Auto 0.1 K/mm3 (0.0-0.1); Basophils Percent Auto 0.8 % (0.2-1.2); Blood Urea Nitrogen 21 mg/dL (9-20); Carbon Dioxide 26 mmol/L (22-30); Chloride 100 mmol/L (98-107); Eosinophils Absolute Auto 0.1 K/mm3 (0-0.3); Eosinophils Percent Auto 1.3 % (0-4.4); Estimated CRCL calculation 87 ml/min; Estimated Glomerular Filt Rate > 60; Glucose 213 mg/dL (65-110); Hematocrit 43.8 % (42.0-52.0); Hemoglobin 14.8 g/dL (14.0-18.0); Immature Granulocyte Absolute 0.04 K/mm3 (0.00-0.031); Immature Granulocyte Percent A 0.5 % (0-0.5); Lymphocytes Absolute Auto 1.45 K/mm3 (0.9-3.2); Lymphocytes Percent Auto 18.7 % (18.3-44.2); Mean Corpuscular HGB Conc 33.8 g/dl (32-36); Mean Corpuscular Hemoglobin 30.5 pg (26-34); Mean Corpuscular Volume 90.3 fl (80-100); Mean Platelet Volume 10.1 fl (7.4-10.4); Monocytes Absolute Auto 0.7 K/mm3 (0.1-0.6); Monocytes Percent Auto 8.6 % (2.6-8.5); Neutrophils Absolute Auto 5.5 K/mm3 (1.3-6.7); Neutrophils Percent Auto 70.1 % (45.5-73.1); Platelet Count Result 197 k/mm3 (150-375); Potassium 3.8 mmol/L (3.4-5.0); Red Blood Count 4.85 M/mm3 (4.6-6.20); Red Cell Distribution Width 12.3 % (11.5-14.5); Sodium 137 mmol/L (137-145); White Blood Count 7.8 K/mm3 (4.5-10.0)
[2021-05-10 00:47] LABS: INR 1.2; Prothrombin Time 15.4 Seconds (11.1-14.7)
[2021-05-10 00:53] LABS: Troponin I < 0.012 ng/mL (0.000-0.034)
[2021-05-10] MEDS: LORazepam INJ (*CRX) 2 MG/ML VIAL 0.5 MG IV PUSH (02:32)
--- NOTE | 2021-05-10 02:59 | PM.IMHP ---
H&P: HPI History of Present Illness Date/Time: 05/10/21 02:59 Chief Complaint: Chest discomfort Narrative: This is a 65-year-old male with past medical history significant for coronary artery disease status post PTCI, hypertension, type 2 diabetes mellitus, tobacco dependence. Patient presented to the emergency room due to heaviness of his left arm and blurry vision this happened roughly 3 hours after dinner while he was sitting at home, patient tried taking some water but did not go away and eventually decided to present to the emergency room. Patient had acute IN in the late part of March for which he was taken to the cardiac catheterization suite where he was found to have occlusion of LAD and underwent successful stent placement. Patient was discharged home. Patient denies any palpitations, dizziness, lightheadedness, syncope or near syncope, no shortness of breath, no cough, no sputum production, no fevers, no rigors, no chills, no nausea, no vomiting, no abdominal pain, no leg swelling, no calves pain. Preliminary workup in emergency room has been essentially nonrevealing. Patient is being placed for observation. Review of Systems Review of Systems: Left arm heaviness, vision changes. Constitutional: Constitutional: Denies chills, Denies excessive sweating, Denies fatigue, Denies fever(s), Denies lethargy, Denies night sweats and Denies weakness Eyes: Eyes: Reports blurry vision and Reports change in vision ENT: Denies dysphagia, Denies vertigo, Denies dizziness, Denies nasal congestion, Denies nasal discharge, Denies nasal obstruction and Denies odynophagia Cardiovascular: Cardiovascular: Denies chest pain, Denies syncope, Denies pedal edema, Denies leg edema, Denies lightheadedness, Denies radiating jaw, neck or arm pain, Denies palpitations, Denies dyspnea, Denies dyspnea on exertion, Denies orthopnea and Reports other (Left arm heaviness) Respiratory: Respiratory: Denies cough, Denies excessive phlegm production, Denies dyspnea and Denies wheezing Gastrointestinal: Gastrointestinal: Denies abdominal pain, Denies dyspepsia, Denies heartburn, Denies nausea and Denies vomiting Genitourinary: Genitourinary: Denies dysuria Musculoskeletal: Musculoskeletal: Denies back pain, Denies myalgias, Denies arthralgias, Denies joint swelling, Denies muscle weakness, Denies neck pain, Denies numbness and Denies tingling Integumentary/Breasts: Skin/Breast: Denies rash Neurologic: Denies vertigo, Denies dizziness, Denies syncope, Denies focal weakness, Denies loss of vision, Denies Sensory deficit (Neuro), Denies tingling and Denies weakness Psychiatric: Psychiatric: Reports no additional psychiatric complaints and Reports as per HPI Endocrine: Endocrine: Denies cold intolerance, Denies heat intolerance, Denies polyphagia, Denies polydipsia and Denies palpitations Hematologic/Lymphatic: Hematologic/Lymphatic: Reports no additional hematologic/lymphatic complaints and Reports as per HPI Allergic/Immunologic: Allergic/Immunologic: Reports no additional allergic/immunologic complaints and Reports as per HPI PMFSH Past Medical History Medical History (Updated 05/10/21 @ 04:53 by Lorna Solano MD) Hyperlipidemia LDL goal <70 Social History Social History Smoking packs per day: 0 Smoking cigarettes per day: 0.0 Smoking status: Never smoker Second hand tobacco smoke exposure: No Alcohol intake: never Drinks per week: 0 Substance use: never Substance use type: does not use Spiritual care concerns: No Meds Home Medications and Allergies Home Medications Medication Instructions Recorded Confirmed Type metformin 1,000 mg PO DAILY 04/17/21 04/17/21 History sildenafil 25 mg PO DAILY PRN 04/17/21 04/17/21 History aspirin [Children's Aspirin] 81 mg PO DAILY@0800 #30 tablet 04/19/21 Rx lisinopril 20 mg PO DAILY #30 tablet 04/19/21 Rx metoprolol succinate 50 m
--- NOTE | 2021-05-10 03:00 | ED.GENADULT ---
HPI - General Adult General Chief complaint: Dizziness Stated complaint: lightheaded with pounding behind eye History of Present Illness HPI narrative: Patient is a 65-year-old male who presents ER with some atypical chest pain. Patient was at home began feeling lightheaded and was having some upper extremity heaviness. He then felt some pounding in his left eye. Patient recently hospitalized with ST elevation SD and required stenting. Patient reports compliance with home Brilinta. He is also on Xarelto due to what he reports is a clot on his echo. No additional chest pain at this time. No shortness of breath or palpitations. Related Data Home Medications Medication Instructions Recorded Confirmed metformin 1,000 mg PO DAILY 04/17/21 05/10/21 sildenafil 25 mg PO DAILY PRN 04/17/21 05/10/21 Allergies Allergy/AdvReac Type Severity Reaction Status Date / Time No Known Allergies Allergy Mild Verified 05/10/21 00:02 Review of Systems Review of Systems: All systems reviewed & are unremarkable except as noted in HPI and below Constitutional: Constitutional: Denies chills, Denies fever(s) and Reports weakness ENT: Denies nasal congestion and Denies sore throat Cardiovascular: Cardiovascular: Denies chest pain, Denies rapid heart rate and Denies radiating jaw, neck or arm pain Respiratory: Respiratory: Denies cough, Denies dyspnea and Denies wheezing Gastrointestinal: Gastrointestinal: Denies abdominal pain, Denies nausea and Denies vomiting Neurologic: Reports dizziness, Denies headache(s) and Denies numbness Comments: Arm heaviness PMFSH Past Medical History Medical History (Updated 05/14/21 @ 18:47 by Ranulfo Simons MD) Coronary artery disease Essential hypertension Hyperlipidemia LDL goal <70 Non-insulin dependent diabetes mellitus Surgical History Surgical History (Updated 05/14/21 @ 18:46 by Ranulfo Simons MD) History of percutaneous coronary intervention Family History Family History (Updated 05/10/21 @ 06:39 by Nora Reeves RN) Father History of PTCA Alzheimer disease Mother History of PTCA Diabetes mellitus Sibling Diabetes mellitus Social History Social History Smoking status: Never smoker Second hand tobacco smoke exposure: No Alcohol intake: never Drinks per week: 0 Substance use: never Substance use type: does not use Spiritual care concerns: No Exam Narrative: GENERAL: Well-appearing, well-nourished, and in no acute distress. HEAD: Normocephalic, atraumatic. EYES: PERRLA and EOMI. CHEST: Clear to auscultation. No respiratory distress. HEART: Regular rate and rhythm. Normal peripheral pulses. ABDOMEN: Soft, nontender, nondistended. EXTREMITIES: Normal range of motion. No edema. SKIN: Warm, dry, no rash. NEURO: Alert and oriented x3. PSYCH: Normal mood and affect. Course Course Emergency Course: Admit for observation. Atypical chest pain, may be having arrhythmia as well. Vital Signs Vital signs: Vital Signs Temperature 97.9 F 05/10/21 00:00 Pulse Rate 65 05/10/21 00:00 Respiratory Rate 20 05/10/21 00:00 Blood Pressure 152/69 H 05/10/21 00:00 Pulse Oximetry 100 05/10/21 00:00 Temperature 97.4 F L 05/10/21 06:10 Pulse Rate 61 05/10/21 10:00 Respiratory Rate 26 H 05/10/21 06:15 Blood Pressure 119/56 L 05/10/21 06:10 Pulse Oximetry 99 05/10/21 06:15 Medical Decision Making Vital Signs Vital Signs: Vital Signs Temperature 97.9 F 05/10/21 00:00 Pulse Rate 65 05/10/21 00:00 Respiratory Rate 20 05/10/21 00:00 Blood Pressure 152/69 H 05/10/21 00:00 Pulse Oximetry 100 05/10/21 00:00 Temperature 97.4 F L 05/10/21 06:10 Pulse Rate 61 05/10/21 10:00 Respiratory Rate 26 H 05/10/21 06:15 Blood Pressure 119/56 L 05/10/21 06:10 Pulse Oximetry 99 05/10/21 06:15 Lab Data Result diagrams: 05/10/21 00:16
[2021-05-10 04:02] LABS: Troponin I < 0.012 ng/mL (0.000-0.034)
--- NOTE | 2021-05-10 06:15 | ADMGEN ---
This patient, Earl Rizo, was admitted to IMU Room 210-01 at 0610. Patient/family oriented to hospital policies and general routines including ID bracelet, bed and alarms, visiting hours, pain management, procedures, bathroom and other care routines, personal items, smoking policy, room service/diet, and visiting hours. Information on how to activate the Rapid Response Team has been discussed. Patient/Family are encouraged to report perceived risks to care and to ask questions if they do not understand what they are told or what they should do.
[2021-05-10 07:20] LABS: Troponin I < 0.012 ng/mL (0.000-0.034)
[2021-05-10 08:29] LABS: Glucose Point of Care 126 mg/dl (65-105)
--- NOTE | 2021-05-10 09:31 | PM.CNCAR ---
Assessment and Plan Additional Plan 65-year-old man with coronary artery disease recent anterior wall infarction treated with emergency revascularization of his LAD as detailed in the previous notes. He has not had any ischemic problem since then. Comes to the hospital last night with very strange symptoms of a pulsating sensation in his eyes. He has does not really describe any problematic chest pain. His biomarkers are negative for ACS his electrocardiogram of course demonstrates findings compatible with his recent anterior infarction but no there is no acute current of injury. It is far too early in the course of his history to be experiencing re stenosis at the site of his LAD stent. He certainly would be at risk for an abrupt stent thrombosis but obviously that has not occurred. I believe he can be discharged for ongoing follow-up as an outpatient. For insurance reasons as I mentioned his follow-up will be with Dr. Farnsworth. His dual anti-platelet therapy Xarelto and metoprolol lisinopril and rosuvastatin should be continued. Again as I mentioned above I would expect only to be treating him for a short time with Xarelto. Britton Lazar MD [facility] History of Present Illness History of Present Illness Consult date/time: 05/10/21 09:31 Reason For Visit: chest pain Narrative: This is a 65-year-old patient I am seeing this morning at the request of the hospitalist because of symptoms of some chest discomfort with which he was admitted to the hospital yesterday through the emergency room. The principal reason he came to the emergency room however was not chest pain it was a pulsating sensation in his eyes. The patient is known to me with a history of coronary disease presenting with a recent anterior wall myocardial infarction about 3 weeks ago. He was taken emergently to the cardiac catheterization lab where he was found to have an acute thrombotic occlusion of the mid LAD which was successfully treated by deploying a drug-eluting stent restoring good RACHNA 3 flow into the LAD down to the apex. He had no post NM complications and did have an akinetic mid to apical anterior wall and a questionable evidence of an apical thrombus on his echocardiogram which was done the following day. He was therefore placed on anticoagulation as well as dual anti-platelet therapy with the intention of continuing anticoagulation for a short amount of time. He was feeling well since his discharge about 3 weeks ago and has not had any chest pain similar to his ischemic pain at the time of his presentation. He was performing normal activities about the house CS starting cardiac rehab and was not having any symptoms that were being triggered by exertion. Yesterday when he was relaxing at home in his chair watching television he noticed the onset of a pulsating sensation in his eyes. He stated that he felt a strange pulsating sensation it took his pulse and recognize that each time he felt a heartbeat he was feeling this sensation in his eyes. This went on for 15 or 20 minutes and created concerned so he his decided come into the emergency room for evaluation. In the emergency department his electrocardiogram does show evidence of his previous anterior infarction but no acute ST segment abnormalities. His troponin levels were checked and were normal and have remained normal x3 sets. He has not had any recurrence of this symptom in his eyes since he was admitted to IMU last night. His telemetry shows sinus rhythm without any significant arrhythmias. He offers no other complaints today today. He did see my nurse practitioner in the office on Saturday of last week for his 1st appointment was doing well at that time. The pain he tells me that because of insurance reasons he is not going to be able to follow-up with us in the office and will be following with Dr. Farnsworth in his office here at [facility]. He is not experiencing any palpitations orthopnea PND he has not salcido
--- NOTE | 2021-05-10 12:45 | PM.DS ---
DS: Admitting Diagnosis Discharge Date 05/10/2021 Admitting Diagnosis Chest discomfort. DS: Discharge Diagnosis Discharge Diagnosis (1) Atypical chest pain: Code(s): R07.89 - Other chest pain Status: Acute (2) Coronary artery disease: Code(s): I25.10 - Atherosclerotic heart disease of [place] coronary artery without angina pectoris Status: Acute (3) Essential hypertension: Code(s): I10 - Essential (primary) hypertension Status: Acute DS: Summary Hospital Course Reason for hospitalization: Chief Complaint: Chest discomfort Narrative: This is a 65-year-old male with past medical history significant for coronary artery disease status post PTCI, hypertension, type 2 diabetes mellitus, tobacco dependence. Patient presented to the emergency room due to heaviness of his left arm and blurry vision this happened roughly 3 hours after dinner while he was sitting at home, patient tried taking some water but did not go away and eventually decided to present to the emergency room. Patient had acute MD in the late part of March for which he was taken to the cardiac catheterization suite where he was found to have occlusion of LAD and underwent successful stent placement. Patient was discharged home. Patient denies any palpitations, dizziness, lightheadedness, syncope or near syncope, no shortness of breath, no cough, no sputum production, no fevers, no rigors, no chills, no nausea, no vomiting, no abdominal pain, no leg swelling, no calves pain. Preliminary workup in emergency room has been essentially nonrevealing. Patient is being placed for observation. Hospital Course: patient is a 65-year-old male with history of coronary artery disease recently had emergently revascularization LAD he presented emergency department with a complaint pulsating sensation in his eyes, patient lasted about 10 minute and is now resolved, seen by loan approver is 3 sets of cardiac enzymes are negative and there are no acute changes on EKG, does not suspect an acute coronary syndrome patient is clinically stable will discharge the patient home today. Status at Discharge Functional status at discharge: independent ambulation Overall status at discharge: patient is back to baseline Time Spent with Patient Time attestation: Total time spent providing and/or coordinating discharge services: Patient was seen and examined at the time of the discharge Condition at discharge is stable Code status: Full code. Time spent preparing discharge summary, discharge medications, discussing discharge planning with block and case maker and patient is 35 minutes. Time spent: Greater than 30 minutes Exam Narrative: Patient is comfortable, NAD HEENT: eyes are clear and none icteric LUNGS:CTA HEART: RR S1S2 ABD: distended Lower extremities: no edema SKIN: nonjaundiced Neuro: grossly intact. DS: Data Data Completed and Pending Labs on day of discharge: Labs from last 24 hours 05/10/21 05/10/21 05/10/21 08:01 06:32 03:36 WBC RBC Hgb Hct MCV MCH MCHC RDW Plt Count MPV Immature Gran % (Auto) Neut % (Auto) Lymph % (Auto) [place] % (Auto) Eos % (Auto) Baso % (Auto) Lymph # (Auto) [place] # (Auto) Eos # (Auto) Baso # (Auto) Abs Immat Gran (auto) Absolute Neuts (auto) Absolute Nucleated RBC Nucleated RBC % PT INR APTT Sodium Potassium Chloride Carbon Dioxide Anion Gap BUN Creatinine Estim Creat Clear Calc Estimated GFR Glucose POC Capillary Glucose 126 H Calcium Troponin I < 0.012 < 0.012 05/10/21 05/10/21 05/10/21 00:16 00:16 00:16 WBC 7.8 RBC 4.85 Hgb 14.8 Hct 43.8 MCV 90.3 MCH 30.5 MCHC 33.8 RDW 12.3 Plt Count 197 MPV 10.1 Immature Gran % (Auto) 0.5 Neut % (Auto) 70.1 Lymph % (Auto) 18.7 [place] % (Auto) 8.6 H Eos % (Auto) 1.3 Baso % (Auto) 0.
== END 2021-05-10 13:09 | disposition home or self-care (01) ==
LOC: ANHED 05-10 00:23 → ANHIMU 05-10 06:53
PROVIDERS: Admitting Provider Internal Medicine; Emergency Provider Emergency Medicine; Visit Provider Family Medicine
DX: R07.89 Other chest pain (principal); M79.602 Pain in left arm; I25.10 Atherosclerotic heart disease of native coronary artery without angina pectoris; I10 Essential (primary) hypertension; E11.9 Type 2 diabetes mellitus without complications; E78.5 Hyperlipidemia, unspecified; I25.2 Old myocardial infarction; Z95.5 Presence of coronary angioplasty implant and graft; Z79.82 Long term (current) use of aspirin; Z79.01 Long term (current) use of anticoagulants; Z79.84 Long term (current) use of oral hypoglycemic drugs
CPT/HCPCS: 36415; 71046; 80048; 82948; 84484; 85025; 85610; 85730; 93005; 96374; 99285; G0378; J2060